=== PATIENT | female | born 1975 | race Caucasian/White ===

== ENCOUNTER 2016-04-30 06:08 | Inpatient (IN) | payer OTHER ==
[2016-04-30] MEDS ORDERED: IBUPROFEN 600 MG TAB PO PRN (06:16)
[2016-04-30] MEDS ORDERED: LR 1,000 ML IV PRN (06:16)
[2016-04-30] MEDS ORDERED: EPSOM SALT 454 GM TP PRN (06:16)
[2016-04-30] MEDS ORDERED: OXYTOCIN/RINGERS LACTATE 1,000 ML IV PRN (06:16)
[2016-04-30] MEDS ORDERED: TERBUTALINE SULFATE 1 MG/ML VIAL IV PRN (06:16)
[2016-04-30] MEDS ORDERED: OLIVE OIL 118 ML BTL MISC PRN (06:16)
[2016-04-30] MEDS ORDERED: LIDOCAINE 1% 30 ML SDV SC PRN (06:16)
[2016-04-30] MEDS ORDERED: LR 500 ML IV PRN (07:08)
[2016-04-30 07:21] LABS: % IMMATURE GRANULYOCYTES 1.5 % (0.0-1.1); ABSOLUTE IMMATURE GRANULOCYTES 0.15 10^3/uL (0.00-0.10); ADD DIFF? NO; ADD MORPH? NO; ADD SCAN? NO; ATYPICAL LYMPHOCYTE FLAG 0 (0-99); FRAGMENT RBC FLAG 0 (0-99); HEMATOCRIT 35.5 % (38.0-47.0); LEFT SHIFT FLG 10 (0-99); LIPEMIA HEMOLYSIS FLAG 90 (0-99); MEAN CELL HEMOGLOBIN 30.5 pg (27.9-34.1); MEAN CELL HEMOGLOBIN CONCENTR. 33.8 g/dL (32.4-36.7); MEAN CELL VOLUME 90.3 fL (81.5-99.8); MEAN PLATELET VOLUME 10.8 fL (8.7-11.7); PLATELET CLUMPS FLAG 10 (0-99); PLATELET COUNT 187 10^3/uL (150-400); RED BLOOD CELL COUNT 3.93 10^6/uL (4.18-5.33)
[2016-04-30] MEDS ORDERED: LIDOCAINE 1% 30 ML SDV ONE (07:21)
[2016-04-30] MEDS ORDERED: OLIVE OIL 118 ML BTL ONE (07:21)
[2016-04-30] MEDS ORDERED: AMMONIA AROMATIC 1 EACH AMP IH ONE (07:22)
[2016-04-30] MEDS ORDERED: OXYTOCIN 10 UNIT/ML VIAL ONE (07:22)
[2016-04-30] MEDS ORDERED: TERBUTALINE SULFATE 1 MG/ML VIAL ONE (07:22)
[2016-04-30] MEDS ORDERED: MISOPROSTOL 200 MCG TAB ONE (07:23)
[2016-04-30] MEDS ORDERED: OXYTOCIN/RINGERS LACTATE 500 ML IV SCH (07:30)
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
--- NOTE | 2016-04-30 13:14 | OBPROG ---
OBG Progress Note Assessment/Plan: Assessment: 40y/o IUP @39w0d Elective IOL at term Hx macrosomia Plan: AROM Con't pitocin per protocol Con't maternal/ monitoring Epidural per pt request PPH meds available @bedisde for delivery d/t Hx macrosomia, 4th delivery Anticipate 04/30/16 13:11 Subjective: Pt resting comfortably in bed, denies significant pain with CTXs. Objective: 04/30/16 06:20 Patient ABO/Rh O POSITIVE 04/30/16 06:20 - SVE Dilation (cm): 5 Effacement (%): 50 Station: -1 Current Contraction Pattern: Regular (q 2-4 min) FHR (bpm): 140 FHR Pattern Variability: Moderate FHR Category: 1 Membranes: AROM Amniotic Fluid Color: Clear ICD10 Worksheet Patient Problems: Problems Problem Status Onset Elective induction of labor planned Acute
[2016-04-30] MEDS ORDERED: fentaNYL 2MCG/ML/BUP 0.1% RTU 100 ML BAG EP ONE (14:08)
[2016-04-30] MEDS ORDERED: PHENYLEPHRINE HCL 100 MCG/ML SYR ONE (14:09)
[2016-04-30] MEDS ORDERED: BUPIVACAINE 0.25% 30 ML SDV ONE (14:09)
[2016-04-30] MEDS ORDERED: fentaNYL 100 MCG/2 ML INJ ONE (14:10)
[2016-04-30] MEDS ORDERED: ONDANSETRON 4 MG/2 ML VIAL IVP PRN (15:23)
[2016-04-30] MEDS ORDERED: PHENYLEPHRINE HCL 100 MCG/ML SYR IVP PRN (15:23)
--- NOTE | 2016-04-30 15:28 | PREANESOB ---
Obstetric Pre-Anesthesia Info - General Info Proposed Procedure: Labor and delivery with pitocin. : 4 Para: 3 WBD: 39 - Info Status: Full Term Monitors: External FHR Baseline (bpm): 140 FHR Pattern: Reassuring - Labor Status Cervical Dilation per last OB SVE: 5 Station per last OB SVE: -1 Amniotic Fluid Color: Clear Pitocin: In Use Indications for Labor Analgesia: Induction of Labor, Pain Control Labor Epidural: Proposed ( macrosomia.) Anesthesia ROS: Prior labor epidural x 3. Allergies/Adverse Reactions: Allergy/AdvReac Type Severity Reaction Status Date / Time shellfish derived Allergy Mild Verified 06/02/12 16:40 MEDICAL TAPE AdvReac Mild Uncoded 06/02/12 16:40 Home Medications: Medication Instructions Recorded Levothyroxine [Synthroid 88 mcg 1 tab PO DAILY 06/02/12 (*)] Vit/Iron Fumarate/FA 1 tab PO DAILY 06/02/12 [Prenafirst Tablet] Ergocalciferol (Vitamin D2) 2,000 unit PO 04/30/16 [Vitamin D2] IRON,CARBONYL [IRON] 04/30/16 Visit Medications: Generic Name Dose Route Start Last Admin Trade Name Freq PRN Reason Stop Dose Admin Lactated Ringer's 1,000 mls @ 0 mls/hr 04/30/16 06:16 04/30/16 07:14 Lr IV 10/27/16 06:15 1,000 mls PRN PRN Administration SEE PROTOCOL CONDITIONS Protocol Per Protocol Oxytocin/Lactated Ringer's 1,000 mls @ 150 mls/hr 04/30/16 06:16 Pitocin 20 Units/Lr (Premix) IV PRN PRN Post- bleeding Lactated Ringer's 500 mls @ 500 mls/hr 04/30/16 07:08 04/30/16 07:53 Lr IV 500 mls PRN PRN Administration Maternal Hypotension Oxytocin/Lactated Ringer's 500 mls @ 0 mls/hr 04/30/16 07:30 Pitocin 30 Units/Lr (Premix) IV 10/27/16 07:29 CONT LIO Protocol Per Protocol Ibuprofen 600 mg 04/30/16 06:16 Motrin PO 10/27/16 06:15 Q6HRS PRN post , inflammation Lidocaine HCl 30 ml 04/30/16 06:16 Lidocaine Hcl 1% SC 10/27/16 06:15 ONCE PRN Episiotomy Magnesium Sulfate 454 gm 04/30/16 06:16 Epsom Salt TP 10/27/16 06:15 PRN PRN perineal discomfort [place] Oil 118 ml 04/30/16 06:16 Sweet Oil MISC 10/27/16 06:15 ONCE PRN preneal massage Terbutaline Sulfate 0.25 mg 04/30/16 06:16 Brethine IV 10/27/16 06:15 ONCE PRN Tachysystole Discontinued Medications Generic Name Dose Route Start Last Admin Trade Name Freq PRN Reason Stop Dose Admin Ammonia (Aromatic Spirit) Confirm 04/30/16 07:22 Ammonia Aromatic Administered 04/30/16 07:23 Dose 1 each IH .STK-MED ONE Bupivacaine HCl Confirm 04/30/16 14:09 Sensorcaine 0.25% Sdv Administered 04/30/16 14:10 Dose 30 ml .ROUTE .STK-MED ONE Ephedrine Sulfate Confirm 04/30/16 07:22 Ephedrine Sulfate Administered 04/30/16 07:23 Dose 50 mg .ROUTE .STK-MED ONE Fentanyl Confirm 04/30/16 14:10 Sublimaze Administered 04/30/16 14:11 Dose 100 mcg .ROUTE .STK-MED ONE Fentanyl/Bupivacaine HCl Confirm 04/30/16 14:08 Fentanyl/Bupivacaine/Ns 2 Mcg/Ml 0.1% (Premix Administered 04/30/16 14:09 Dose 100 ml EP .STK-MED ONE Lidocaine HCl Confirm 04/30/16 07:21 Lidocaine Hcl 1% Administered 04/30/16 07:22 Dose 30 ml .ROUTE .STK-MED ONE Misoprostol Confirm 04/30/16 07:23 Cytotec Administered 04/30/16 07:24 Dose 800 mcg .ROUTE .STK-MED ONE [place] Oil Confirm 04/30/16 07:21 Sweet Oil Administered 04/30/16 07:22 Dose 118 ml .ROUTE .STK-MED ONE Oxytocin Confirm 04/30/16 07:22 Pitocin Administered 04/30/16 07:23 Dose 40 unit .ROUTE .STK-MED ONE Phenylephrine HCl Confirm 04/30/16 14:09 Arpan-Synephrine Administered 04/30/16 14:10 Dose 1,000 mcg .ROUTE .STK-MED ONE Terbutaline Sulfate Confirm 04/30/16 07:22 Brethine Administered 04/30/16 07:23 Dose 1 mg .ROUTE .STK-MED ONE - Anesthesia History Response to Local Anesthetics: Normal Anesthesia & Operative History: No Prior Problems - Focused Exam Blood Pressure: 142/75 Heart Rate: 91 Height/Weight (Nursing): Height 175.26 cm Weight 124.284 kg Physical Exam: Within normal limits. ASA Status: II Labs: 04/30/16 06:20 Patient ABO/Rh O POSITIVE 04/30/16 06:20 - Plan Anesthetic Plan: CSE Consent Signed and on Chart: Yes Patient/Guardian Understands and Agrees to Plan: Yes
[2016-04-30] MEDS ORDERED: LR 500 ML IV SCH (15:30)
[2016-04-30] MEDS ORDERED: fentaNYL 2MCG/ML/BUP 0.1% RTU 100 ML EP SCH (15:30)
--- NOTE | 2016-04-30 15:30 | POSTANESTH ---
Post Anesthetic Evaluation Cardiovascular Status: Normal, Stable Respiratory Status: Normal, Stable, Similar to Pre-op Cond. Level of Consciousness/Mental Status: Can Participate in Eval, Alert and Oriented Pain Control: Adequate, Prn Tx Ordered Nausea/Vomiting Control: Adequate, Prn Tx Ordered Complications Possibly Related to Anesthesia: None Noted (Tolerated CSE well, stable, comfortable.)
[2016-04-30] MEDS ORDERED: ACETAMINOPHEN 325 MG TAB PO PRN (16:32)
[2016-04-30] MEDS ORDERED: HYDROCODONE/APAP 5/325 TAB PO PRN (16:32)
[2016-04-30] MEDS ORDERED: DOCUSATE SODIUM 100 MG CAP PO PRN (16:32)
--- NOTE | 2016-04-30 16:37 | OBPROC ---
- Labor and Delivery Onset of Contractions Date: 04/30/16 Onset of Contractions Time: 08:00 Onset of Contractions Type: Induced Rupture of Membranes Date: 04/30/16 Rupture of Membranes Time: 13:05 Rupture of Membranes Type: Artificial Amniotic Fluid Color: Clear Delivery Type: Spontaneous Placenta Delivery Date: 04/30/16 Placenta Delivery Time: 15:29 Episiotomy/Laceration: 2nd Degree Repair: 3-0, Vicryl (x2) EBL: 400 Complications: None - Medications Labor Augmentation/Induction Meds Used: Pitocin Labor Augmentation/Induction Indication: Elective Anesthesia: Epidural - [place] Info Infant A Delivery Date: 04/30/16 Delivery Time: 15:24 Sex of Infant: Female Score (1 Min): 6 Score (5 Min): 7
[2016-04-30] MEDS: IBUPROFEN 600 MG TAB PO PRN (18:33)
[2016-05-01] MEDS: IBUPROFEN 600 MG TAB PO PRN ×5 (00:26→23:35)
[2016-05-01] MEDS: SERTRALINE HCL 50 MG TAB PO SCH (05:33)
[2016-05-01] MEDS: LEVOTHYROXINE 88 MCG TAB PO SCH (05:33)
--- NOTE | 2016-05-01 07:59 | OBPROG ---
OBG Progress Note Assessment/Plan: Assessment: 1) s/p PPD # 1- pt is stable 2) Anemia - pt is asymptomatic Plan: Continue routine pp care If baby is d/c home today, plan for d/c Instructions reviewed with pt No RX given Cont PNV Pelvic rest RTC in 4 and 6 weeks for pp visit 05/01/16 07:56 05/01/16 07:59 Subjective: Pt seen and examined. Doing well, no complaints. Minimal cramping. Moderate lochia. Passing flatus, no BM. without difficulty. May want to go home if baby is discharged. Objective: 04/30/16 06:20 Patient ABO/Rh O POSITIVE 04/30/16 06:20 Temp Pulse Resp BP Pulse Ox 37.0 C 90 18 132/78 H 95 04/30/16 22:38 04/30/16 22:38 04/30/16 22:38 04/30/16 22:38 04/30/16 22:38 Uterine Position/Fundal Height: Umbilicus -2 Uterine Tone: Firm - Physical Exam General Appearance: WD/WN, alert, no apparent distress Respiratory: lungs clear, normal breath sounds Cardiac/Chest: regular rate, rhythm Abdomen: normal bowel sounds, non-tender, soft, flatus (+) Genitourinary: laceration (intact), lochia (moderate) Extremities: non-tender, normal inspection Neuro/Psych: alert, normal mood/affect, oriented x 3 ICD10 Worksheet Patient Problems: Problems Problem Status Onset (normal spontaneous vaginal delivery) Acute
[2016-05-01 21:13] VITALS: O2SAT 94
[2016-05-02] MEDS: LEVOTHYROXINE 88 MCG TAB PO SCH (06:17)
[2016-05-02] MEDS: IBUPROFEN 600 MG TAB PO PRN (06:17)
[2016-05-02] MEDS: SERTRALINE HCL 50 MG TAB PO SCH (07:58)
--- NOTE | 2016-05-02 09:04 | OBPROG ---
OBG Progress Note Assessment/Plan: Assessment: 40 y/o PPD #2 s/p doing well. Plan: D/c home today will take Ibuprofen prn. Follow-up @ [facility] 4 and 6 weeks. 05/02/16 09:02 Subjective: Pt is doing well. She denies pain, has min lochia and cramping. She is ambulating and voiding without difficulty and breast feeding is going well. Objective: 04/30/16 06:20 Patient ABO/Rh O POSITIVE 04/30/16 06:20 Temp Pulse Resp BP Pulse Ox 36.2 C 93 18 138/83 H 94 05/01/16 20:30 05/01/16 20:30 05/01/16 20:30 05/01/16 20:30 05/01/16 20:30 Uterine Position/Fundal Height: Umbilicus -2 Uterine Tone: Firm - Physical Exam General Appearance: WD/WN, alert, no apparent distress Neck: non-tender, full range of motion, supple Respiratory: chest non-tender, lungs clear, normal breath sounds Cardiac/Chest: regular rate, rhythm Abdomen: normal bowel sounds Extremities: swelling (no), Jacqueline's sign (neg) ICD10 Worksheet Patient Problems: Problems Problem Status Onset (normal spontaneous vaginal delivery) Acute
[2016-05-02 09:32] VITALS: BP 120/80; PULSE 86; RESP 16; TEMP 97.5
[2016-05-02] MEDS ORDERED: MEASLES,MUMPS&RUBELLA VACC/PF 0.5 ML VIAL SC ONE (10:00)
== END 2016-05-02 10:45 | disposition home or self-care (01) | DRG 775 ==
LOC: FLD 06:08 → FOB 19:30
PROVIDERS: ADMIT Obstetrics & Gynecology; ATTEND Obstetrics & Gynecology
PROC: 10E0XZZ Delivery of Products of Conception, External Approach (ICD-10-PCS; principal; 2016-04-30)
PROC: 10907ZC Drainage of Amniotic Fluid, Therapeutic from Products of Conception, Via Natural or Artificial Opening (ICD-10-PCS; principal; 2016-04-30)
PROC: 0KQM0ZZ Repair Perineum Muscle, Open Approach (ICD-10-PCS; principal; 2016-04-30)
PROC: 3E033VJ Introduction of Other Hormone into Peripheral Vein, Percutaneous Approach (ICD-10-PCS; principal; 2016-04-30)
DX: O70.1 Second degree perineal laceration during delivery (principal); O99.284 Endocrine, nutritional and metabolic diseases complicating childbirth; E03.9 Hypothyroidism, unspecified; O99.02 Anemia complicating childbirth; D64.9 Anemia, unspecified; Z3A.39 39 weeks gestation of pregnancy; Z37.0 Single live birth
CPT/HCPCS: J2370; J2590; J3010; J3105

== ENCOUNTER → 2018-01-29 | Outpatient (CLI) | payer OTHER | LOC: BRMIMAGING 08:16 | PROVIDERS: ATTEND Obstetrics & Gynecology | DX: Z12.31 Encounter for screening mammogram for malignant neoplasm of breast (principal) ==